=== PATIENT | female | born 1970 ===

== ENCOUNTER 2023-07-01 08:56 | Outpatient (CLI) | payer OTHER | END 2023-07-01 09:00 | disposition home or self-care (01) | LOC: SONOGRAMA 08:56 | PROVIDERS: ATTEND Obstetrics & Gynecology | DX: N84.0 Polyp of corpus uteri (principal) ==

== ENCOUNTER 2023-07-31 07:16 | Day surgery (SDC) | payer OTHER ==
[~2023-07-31 07:16] MED LIST: COZAAR25 MG PO
== END 2023-08-01 00:20 | disposition home or self-care (01) ==
LOC: CIR.AMB 07:16 → U 07:16 → CIR.AMB 10:45
PROVIDERS: ATTEND Obstetrics & Gynecology
DX: N84.0 Polyp of corpus uteri (principal); N84.1 Polyp of cervix uteri; N92.1 Excessive and frequent menstruation with irregular cycle